=== PATIENT | male | born 1995 | race Caucasian/White ===

== ENCOUNTER 2017-07-09 23:13 | Emergency (ER) | payer BC, OTHER ==
[~2017-07-09] VITALS: Ht 200.7 cm; Wt 120.6 kg
[2017-07-09 23:21] VITALS: TEMP 36.5; Ht 200.7 cm; Wt 120.6 kg
[2017-07-10] MEDS ORDERED: XYLOCAINE 1%/SOD BICARB 20 ML VIAL INFIL ONE ×2 (00:15)
[2017-07-10] MEDS ORDERED: CEPHALEXIN MONOHYDRATE 250 MG CAP PO ONE (00:15)
[2017-07-10] MEDS ORDERED: CEPH500C PO (00:54)
[2017-07-10] MEDS ORDERED: NORCO 5/325MG HOME PACK PO ONE (01:00)
[2017-07-10 01:13] VITALS: BP 156/88; PULSE 98; O2SAT 95
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
== END 2017-07-10 01:15 | disposition home or self-care (01) ==
LOC: C.EDB 23:15 → C.EDA 07-10 01:15
DX: S51.821A Laceration with foreign body of right forearm, initial encounter (principal); W22.8XXA Striking against or struck by other objects, initial encounter; S51.021A Laceration with foreign body of right elbow, initial encounter